=== PATIENT | female | born 2000 | race Caucasian/White ===

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

== ENCOUNTER 2023-07-28 07:29 | Inpatient (IN) ==
[2023-07-28] MEDS ORDERED: LIDOCAINE 1% LOCAL 20 ML VIAL INFIL PRN (07:46)
[2023-07-28] MEDS ORDERED: OXYTOCIN 30 UNITS/NSS 30 UNITS/500 ML BAG IV PRN ×3 (07:46→14:52)
[2023-07-28 08:26] LABS: Hematocrit (blood only) 37.2 % (37.0-47.0); Mean Corpuscular Hemoglobin 28.6 pg (25.0-34.0); Mean Corpuscular Hgb Conc 32.3 g/dL (32.0-36.0); Mean Corpuscular Volume 88.8 fL (80.0-100.0); Mean Platelet Volume 10.7 fL (9.4-12.4); Platelet Count 215 K/uL (130-400); RDW Coefficient of Variation 14.1 % (11.5-14.5); RDW Standard Deviation 45.7 fL (36.4-46.3); Red Blood Count 4.19 M/uL (4.20-5.40); White Blood Count 10.86 K/ul (4.8-10.8)
[2023-07-28] MEDS: LACTATED RINGER'S 1,000 ML IV PRN ×2 (08:38→10:46)
--- NOTE | 2023-07-28 08:47 | History & Physical Report ---
"Date of Service July 28, 2023 Assessment & Plan (1) Encounter for induction of labor: Plan: pitocin arom when appropriate monitor tracing, category 1 at present Admission and Anticipated Discharge Date Admission Date: July 28, 2023 History of Present Illness Chief Complaint: IOL Primary Care Provider: Alexandr Roland MD 23 yo at 40w1d admitted for IOL for post-dates. Denies PERRY, CP, SOB, N/V/D, LE pain. 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 Skin: warm, dry, intact HEENT: NC/AT, anicteric sclera, conjunctiva without injection, moist mucus membranes Heart: +S1/S2, regular, no m/r/g Lungs: equal air entry bilaterally, no rales/rhonchi/wheezes Abd: +BS, soft, NT/ND, gravid uterus Cervical: 4|90|0|, cervix posterior Ext: warm, no clubbing/cyanosis or edema Neuro: speech intact, no facial droop, moving all extremities on command. : FHR baseline 130, moderate variability, accelerations present, decelerations absent Results & Data Vital Signs (Past 12 Hours) Vital Signs Temp Pulse Resp BP 07/28/23 07:39 36.9 C 20 07/28/23 07:38 106 H 115/80 07/28/23 07:36 20 07/28/23 07:36 36.9 C 20 Supervising Physician Co-Signing Physician Notes Resident Physician Supervision Note: I interviewed and examined the patient. Discussed with Dr. Ruiz and agree with findings and plan as documented in the note. Any exceptions or clarifications are listed here: [None] Documented By: Marta Pike MD, FACOG Resident Activity Tracking Resident Involvement: Resident Care Provided Care Provided: Adult Hospital Medicine"
[2023-07-28] MEDS ORDERED: ePHEDrine sulfate 50 MG/ML AMP ONE (09:59)
[2023-07-28] MEDS ORDERED: fentaNYL citrate PF 100 MCG/2 ML VIAL ONE (09:59)
[2023-07-28] MEDS ORDERED: SODIUM CHLORIDE 0.9% PF INJ 10 ML VIAL ONE (10:00)
[2023-07-28] MEDS ORDERED: fentANYL 2 MCG/ML BUPIVacaine 0.125%-NSS 100ML BAG ONE (10:00)
[2023-07-28] MEDS ORDERED: BUPIVACAINE 0.25% PF 30 ML VIAL ONE (10:00)
[2023-07-28] MEDS ORDERED: LIDOCAINE 2%/EPINEPHRINE 1:200,000 20 ML PF ONE (10:00)
[2023-07-28] MEDS ORDERED: LIDOCAINE 2%/EPINEPHRINE 1:200,000 20 ML PF EPI STA (10:09)
[2023-07-28] MEDS ORDERED: NALOXONE HCL 0.4 MG/1 ML VIAL/CARP IV PRN (10:09)
[2023-07-28] MEDS ORDERED: BUPIVACAINE 0.25% PF 30 ML VIAL EPI PRN (10:09)
[2023-07-28] MEDS ORDERED: SODIUM CHLORIDE 0.9% PF INJ 10 ML VIAL EPI PRN (10:09)
[2023-07-28] MEDS ORDERED: diphenhydrAMINE 50 MG/ML VIAL IV PRN (10:09)
[2023-07-28] MEDS ORDERED: SODIUM CHLORIDE 0.9% PF INJ 10 ML VIAL EPI STA (10:09)
[2023-07-28] MEDS ORDERED: fentANYL 2 MCG/ML BUPIVacaine 0.125%-NSS 100ML BAG EPI PRN (10:09)
[2023-07-28] MEDS ORDERED: fentaNYL citrate PF 100 MCG/2 ML VIAL EPI PRN (10:09)
[2023-07-28] MEDS ORDERED: NALBUPHINE HCL 5 MG in SYRINGE 0 ML IV PRN (10:09)
[2023-07-28] MEDS ORDERED: fentaNYL citrate PF 100 MCG/2 ML VIAL EPI STA (10:09)
[2023-07-28] MEDS ORDERED: ePHEDrine sulfate 50 MG/ML AMP IV PRN (10:09)
[2023-07-28] MEDS ORDERED: LIDOCAINE 2% MPF LOCAL 5 ML VIAL EPI PRN (10:09)
[2023-07-28] MEDS ORDERED: NALOXONE HCL 1 MG in SODIUM CHLORIDE 0.9% 1,000 ML IV PRN (10:09)
[2023-07-28] MEDS ORDERED: ROPIVACAINE 0.5% PF 5 MG/ML 20 ML VIAL EPI PRN (10:09)
[2023-07-28] MEDS ORDERED: BUPIVACAINE 0.25% PF 30 ML VIAL EPI STA (10:09)
--- NOTE | 2023-07-28 10:09 | Anesthesiology Consultation ---
Date of Service July 28, 2023 Assessment & Plan (1) Encounter for pre-operative examination: Chart Review Chart Review: Patient NOT seen in Pre Admission Testing and Acceptable Risk for Labor Epidural Consults Requested none History Height/Weight Height: 5 ft 2 in Weight: 81.647 kg Allergies Allergy/AdvReac Type Severity Reaction Status Date / Time No Known Drug Allergies Allergy none Verified 07/27/23 19:49 Medications Home Medications Medication Instructions Recorded Confirmed Last Taken prenat.vits,yaiam,piw-yokv-pwzty 1 tab PO DAILY 05/12/21 07/28/23 07/26/23 08:00 Active Medications Generic Name Dose Route Start Last Admin Trade Name Freq PRN Reason Stop Dose Admin Oxytocin 30 units in 500 mls @ 2 mls/hr 07/28/23 07:46 07/28/23 08:49 Pitocin IV 07/30/23 07:45 0.12 units/hr .Q24H PRN 2 mls/hr Labor Induction/Augmentation Administration Protocol 0.12 UNITS/HR Lactated Ringer's 1,000 mls @ 125 mls/hr 07/28/23 07:46 07/28/23 08:38 Lr IV 07/30/23 07:45 125 mls/hr .Q8H PRN Administration L&D Protocol Protocol Past Medical History Medical History 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 Father Diabetes Grandmother Colorectal cancer Sister PCOS (polycystic ovarian syndrome) Breast cancer Denies family history of Ovarian cancer Social History Smoking Status: Never smoker Do You Dip or Chew Tobacco: No Hx Alcohol Use: No Hx Substance Use: No substance use type: does not use Physical Exam Vital Signs Last Vital Signs Temp 98.4 F 07/28/23 07:39 Pulse 97 H 07/28/23 08:56 Resp 20 07/28/23 07:39 BP 115/74 07/28/23 08:56 Testing Laboratory Results 07/28/23 08:10
[2023-07-28] MEDS ORDERED: BENZOCAINE 20% SPRY 85 APPLN/85 GM CAN EXT PRN (14:52)
[2023-07-28] MEDS ORDERED: DIPHTHERIA/TETANUS/PERTUSSIS Vaccine (Tdap, Age 7+yrs) 0.5mL SYR/VL IM ONE (14:52)
[2023-07-28] MEDS ORDERED: oxyCODONE/ACETAMINOPHEN 5mg/325mg TAB PO PRN (14:52)
[2023-07-28] MEDS ORDERED: bisacodyL 10 MG SUPP PR PRN (14:52)
[2023-07-28] MEDS ORDERED: ACETAMINOPHEN 325 MG TAB PO PRN (14:52)
[2023-07-28] MEDS ORDERED: HYDROCORTISONE ACETATE 25 MG SUPP PR PRN (14:52)
--- NOTE | 2023-07-28 15:02 | Anesthesia Procedure Note ---
Date of Service July 28, 2023 Anesthesia Post Epidural Note Vital Signs Vital Signs: Temp Pulse Resp BP Pulse Ox 98.4 F 106 H 18 104/67 96 07/28/23 14:48 07/28/23 14:48 07/28/23 14:48 07/28/23 14:48 07/28/23 14:30 Pain Intensity Bilateral Abdomen: Pain Intensity: 0 Notes Mental Status: alert / awake / arousable and participated in evaluation Nausea / Vomiting: adequately controlled Pain: adequately controlled Airway Patency, RR, SpO2: stable & adequate BP & HR: stable & adequate Hydration State: stable & adequate Neuraxial Anesthesia: was administered and sensory block is resolving Anesthetic Complications: no major complications apparent and Pt Satisfied with anesthetic care Epidural: Removed without complications and With tip intact
--- NOTE | 2023-07-28 15:05 | Delivery Summary ---
Vaginal Delivery Summary Date of Service July 28, 2023 Vaginal Delivery Summary and 2nd Degree LAC Patient is a 23-year-old G1, P0 EDC of 07/27/2023 who presented for post term induction of labor. She was richard upon arrival in labor and delivery but the contractions were still irregular and mild. Pitocin augmentation was begun and she received effective epidural analgesia when she became painful. Membranes were ruptured for clear fluid. She progressed to full dilation with the urge to push. She pushed effectively over intact perineum for delivery of a viable female infant. After the head was delivered, a shoulder cord was reduced prior to delivering the rest the infant. The was then placed on the mother's abdomen for further attention and drying. She was vigorous after stimulation. The cord was clamped and cut after 1 minute. After cord blood was obtained, the placenta was expressed intact with a three-vessel cord. Retained membranes were noted in the vaginal vault and these were removed with the assistance of a ring forcep. bleeding was controlled with dilute Pitocin and fundal massage. The first-degree vaginal laceration was repaired with 3-0 chromic in the usual fashion. Estimated blood loss was 300 cc. Mother and were doing well after delivery. [facility] [place] Vaginal Delivery Charge Delivery Type Details: and 2nd Degree LAC
[2023-07-28] MEDS: IBUPROFEN 600 MG TAB PO PRN (17:11)
[2023-07-28] MEDS: DOCUSATE SODIUM 100 MG CAP PO SCH ×2 (21:12→21:18)
[2023-07-29 06:14] LABS: Hematocrit (blood only) 31.2 % (37.0-47.0); Hemoglobin 10.2 g/dl (12.0-16.0); Mean Corpuscular Hemoglobin 28.9 pg (25.0-34.0); Mean Corpuscular Hgb Conc 32.7 g/dL (32.0-36.0); Mean Corpuscular Volume 88.4 fL (80.0-100.0); Platelet Count 174 K/uL (130-400); RDW Coefficient of Variation 14.2 % (11.5-14.5); RDW Standard Deviation 45.2 fL (36.4-46.3); Red Blood Count 3.53 M/uL (4.20-5.40); White Blood Count 13.66 K/ul (4.8-10.8)
--- NOTE | 2023-07-29 06:50 | Obstetrical Progress Note ---
Date of Service July 29, 2023 Assessment & Plan Admission and Anticipated Discharge Date Admission Date: July 28, 2023 Supervising Physician Co-Signing Physician Notes Resident Physician Supervision Note: I interviewed and examined the patient. Discussed with Dr. Ruiz and agree with findings and plan as documented in the note. Any exceptions or clarifications are listed here: [None] Documented By: Marta Pike MD, FACOG Subjective 23 yo post day 1 s/p Ambulation: ambulating normally Voiding: no voiding problems Passing Gas:: Yes Diet Tolerance:: regular diet Lochia:: Small Feeding Type:: breast feeding Current Pain Level: Resting comfortably this AM in NAD. Denies PERRY, CP, SOB, N/V/D, LE pain/swelling. Desires discharge today Results & Data Vital Signs (Past 12 Hours) Vital Signs Temp Pulse Resp BP Pulse Ox O2 Del Method 07/29/23 03:55 36.8 C 105 H 18 105/71 98 Room Air 07/28/23 23:10 36.7 C 98 H 20 100/67 100 Room Air 07/28/23 20:25 Room Air 07/28/23 20:25 36.5 C 104 H 18 112/71 97 Room Air Resident Activity Tracking Resident Involvement: Resident Care Provided Care Provided: Adult Hospital Medicine
[2023-07-29] MEDS: DOCUSATE SODIUM 100 MG CAP PO SCH (07:32)
[2023-07-29] MEDS: IBUPROFEN 600 MG TAB PO PRN (07:32)
[2023-07-29] MEDS: PRENATAL VITAMIN 1 TAB PO SCH ×2 (07:32→07:34)
[2023-07-29] MEDS ORDERED: MEASLES, MUMPS & RUBELLA VIRUS VACCINE (MMR) VIAL SQ ONE (08:10)
[2023-07-29] MEDS ORDERED: NON-FORMULARY MEDICATION (Prenat.Vits,Cal,Min-Iron-Folic tablet) PO SCH (09:00)
[2023-07-29] MEDS ORDERED: bisacodyL 5 MG TABEC PO SCH (20:00)
== END 2023-07-29 15:40 | disposition home or self-care (01) | DRG 807 ==
LOC: 4S1 07:29 → 4E2 17:27